=== PATIENT | female | born 1985 | race Caucasian/White ===

== ENCOUNTER → 2019-04-20 | Outpatient (CLI) | payer OTHER ==
[~2019-04-20] MED LIST: ANAPROX DS550 MG PO; AUGMENTIN 875 M1 TAB PO; CIPRODEX 0.3%-7.5 ML OT
[2019-04-20 13:49] LABS: BASO % 0.3 % (0.0-1.0); EOS # 0.3 10*3/uL (0.0-0.4); EOS % 3.2 % (1.0-4.0); HEMATOCRIT 45.6 % (37.0-47.0); HEMOGLOBIN 14.8 g/dl (12.0-16.0); LYMPH # 3.5 10*3/uL (1.3-4.4); MEAN CORPUSCULAR HGB 31.5 pg (27.0-31.0); MEAN CORPUSCULAR HGB CONC 32.5 g/dl (33.0-37.0); MEAN PLATELET VOLUME 10.8 fl (9.6-12.3); MONO # 0.6 10*3/uL (0.1-1.0); MONO % 6.8 % (3.0-9.0); NEUT # 4.8 10*3/uL (2.3-7.9); NEUT % 51.6 % (47.0-73.0); PLATELET COUNT AUTOMATED 213 10*3/uL (130-400); RED CELL DISTRI WIDTH 13.2 % (0-14.5); WHITE BLOOD COUNT 9.3 10*3/uL (4.8-10.8)
[2019-04-20 14:21] LABS: ALBUMIN 3.8 gm/dl (3.1-4.5); ALKALINE PHOSPHATASE 59 U/L (45-117); BUN 11 mg/dl (7-24); CHLORIDE 108 mmol/L (98-107); CHOLESTEROL 176 mg/dL (<200); CREATININE 0.53 mg/dL (0.55-1.02); HDL CHOLESTEROL 77 mg/dl (40-60); LDL CHOLESTEROL 79 mg/dL (9-159); POTASSIUM 3.7 mmol/L (3.5-5.1); SGOT/AST 22 IU/L (3-35); SGPT/ALT 42 U/L (12-78); SODIUM 140 mmol/L (136-145); TOTAL PROTEIN 7.5 gm/dL (6.4-8.2); TRIGLYCERIDES 100 mg/dl (<150); VLDL CHOLESTEROL 20 mg/dL (6-40)
[2019-04-20 14:25] LABS: THYROID STIM HORMONE (HS) 0.895 uIU/ml (0.358-4.75)
[2019-04-20 14:29] LABS: VITAMIN D, 25-HYDROXY 48.2 ng/mL (30-100)
[2019-04-22 09:50] LABS: HEPATITIS B SURFACE AG Negative (Negative); HEPATITIS C VIRUS ANTIBODY <0.1 s/co (0.0-0.9)
== END | disposition home or self-care (01) ==
LOC: LAB 12:47
PROVIDERS: Physician Assistant
DX: Z79.899 Other long term (current) drug therapy (principal)

== ENCOUNTER 2021-02-21 17:43 | Emergency (ER) | payer OTHER ==
[~2021-02-21] VITALS: Wt 86.2 kg
[2021-02-22] MEDS ORDERED: PREDNISONE50 MG PO (12:40)
[2021-02-22] MEDS ORDERED: ZITHROMAX250 MG PO (12:40)
== END 2021-02-21 18:30 | disposition left against medical advice (07) ==
LOC: ED 17:43
DX: R06.02 Shortness of breath (principal); R05 Cough; Z53.21 Procedure and treatment not carried out due to patient leaving prior to being seen by health care provider

== ENCOUNTER 2021-02-22 10:06 | Emergency (ER) | payer OTHER ==
[~2021-02-22] VITALS: Ht 175.2 cm; Wt 86.2 kg
[2021-02-22] MEDS ORDERED: PREDNISONE50 MG PO (12:40)
[2021-02-22] MEDS ORDERED: ZITHROMAX250 MG PO (12:40)
== END 2021-02-22 12:48 | disposition home or self-care (01) ==
LOC: ED 10:06
DX: J20.9 Acute bronchitis, unspecified (principal)